=== PATIENT | male | born 1970 | race African-American/Black ===

== ENCOUNTER 2017-02-03 09:46 | Emergency (ER) | payer SELFPAY ==
[~2017-02-03] VITALS: Ht 182.9 cm; Wt 82.0 kg
[2017-02-03 10:03] VITALS: BP 115/67
[2017-02-03] MEDS ORDERED: LIDOCAINE HCL 1% 20ML VIAL (Pyxis) INJ INFIL ONE (12:15)
== END 2017-02-03 13:07 | disposition home or self-care (01) ==
LOC: ER 09:46
DX: H05.012 Cellulitis of left orbit (principal)
CPT/HCPCS: 10060; 99283; J3490; X7700; Z7610